=== PATIENT | female | born 1940 | race American Indian/Alaskan Native ===

== ENCOUNTER 2021-03-03 08:55 | Emergency (ER) | payer MEDICARE ==
--- NOTE | 2021-03-03 09:04 | Emergency Department Report ---
ED CPR HPI - General Chief Complaint: Cardiac Arrest/CPR Stated Complaint: CARDIAC ARREST Time Seen by Provider: 03/03/21 08:59 Source: EMS - History of Present Illness Initial Comments: Patient is 80 years old female with history of stroke, congestive heart failure, diabetes, hypertension. Patient brought to the emergency room via EMS from home in a full cardiac arrest CPR in progress. EMS stated that initial call came at 8:16 AM. ACLS started at 8:20AM. Patient immediately intubated by EMS. Patient received epinephrine, bicarb, dextrose 50 and calcium gluconate by EMS. Upon arrival to the ER ACLS protocol continued. ET tube confirmed by good breath sound on both side with symmetrical rise of the chest. EMS reported that patient last time was seen normal by her family around 1AM. Patient remained in asystole. Patient pronounced at 8:58AM. For further information please refer to code sheet. No family available at this moment. MD Complaint: found unresponsive, unknown -: unknown Place: home Bystander CPR Performed: No AED Applied by Bystander/Gas Derrick Operator: No Initial Findings in the Field: no pulse, systole ROSC in the Field: No Associated Injuries: No Treatments Prior to Arrival: intubation, chest compressions, epinephrine mgs #, sodium bicarbonate, glucose - Related Data Home Medications Medication Instructions Recorded Confirmed Last Taken Brimonidine/Timolol 0.2-0.5% 1 drops OP BID 11/13/15 11/13/15 11/12/15 08:00 [Combigan 0.2-0.5%] Carboxymethyl/Gly/Poly80/Pf 1 drop OP BID PRN 11/13/15 11/13/15 11/12/15 08:00 [Refresh Optive Advanced Drops] prednisoLONE ACETATE 1% [Pred 1 drops OP BID 11/13/15 11/13/15 11/12/15 08:00 Forte 1%] Previous Rx's Medication Instructions Recorded Last Taken Type Aspirin 325 mg PO QDAY #30 tablet 11/12/15 11/12/15 08:00 Rx 325 mg Fluticasone [Flonase] 1 spray NS QDAY #1 bottle 11/12/15 Unknown Rx Acetaminophen [Acetaminophen TAB] 650 mg PO Q4H PRN #1 tablet 12/02/15 Unknown Rx Enoxaparin 40 mg SUB-Q QDAY syringe 12/02/15 Unknown Rx Escitalopram [Lexapro] 10 mg PO DAILY tablet 12/02/15 Unknown Rx Gabapentin 100 mg PO Q8HR capsule 12/02/15 Unknown Rx Losartan [Cozaar] 50 mg PO QDAY tablet 12/02/15 Unknown Rx bisacodyL [Dulcolax suppos] 10 mg [place] QDAY PRN #1 supp.rect 12/02/15 Unknown Rx Allergies Allergy/AdvReac Type Severity Reaction Status Date / Time iodine Allergy Unknown Verified 11/09/15 00:53 atorvastatin calcium AdvReac Intermediate Dizziness Verified 11/12/15 21:43 [From Lipitor] rosuvastatin calcium AdvReac Intermediate Unknown Verified 11/12/15 21:43 [From Crestor] ED Review of Systems ROS: Stated complaint: CARDIAC ARREST Other details as noted in HPI Comment: Unobtainable due to pts medical conditions ED Past Medical Hx - Past Medical History Hx Hypertension: Yes Hx Congestive Heart Failure: Yes (Mild CHF per family) Hx Diabetes: Yes (Prediabetic per family no meds) Hx Psychiatric Treatment: Yes (anxiety, depression) Additional medical history: Heart murmur, Irregular heartbeat, lumbar stenosis, sleep apnea - Surgical History Additional Surgical History: Valve replacement - Social History Smoking Status: Never Smoker - Medications Home Medications: Home Medications Medication Instructions Recorded Confirmed Last Taken Type Aspirin 325 mg PO QDAY #30 tablet 11/12/15 11/21/15 11/12/15 08:00 Rx 325 mg Fluticasone [Flonase] 1 spray NS QDAY #1 bottle 11/12/15 11/21/15 Unknown Rx Brimonidine/Timolol 0.2-0.5% 1 drops OP BID 11/13/15 11/13/15 11/12/15 08:00 History [Combigan 0.2-0.5%] Carboxymethyl/Gly/Poly80/Pf 1 drop OP BID PRN 11/13/15 11/13/15 11/12/15 08:00 History [Refresh Optive Advanced Drops] prednisoLONE ACETATE 1% [Pred 1 drops OP BID 11/13/15 11/13/15 11/12/15 08:00 History Forte 1%] Acetaminophen [Acetaminophen TAB] 650 mg PO Q4H PRN #1 tablet 12/02/15 Unknown Rx Enoxaparin 40 mg SUB-Q QDAY syringe 12/02/15 Unknown Rx Escitalopram [Lexapro] 10 mg PO DAILY tablet 12/02/15 Unknown Rx Gabapentin 100 mg PO Q8HR capsule 12/02/15 Unknown Rx Losartan [Cozaar] 50 mg PO QDAY tablet 12/02/15 Unknown Rx bisacodyL [Dulcolax suppos] 10 mg [place] QDAY PRN #1 supp.rect 12/02/15 Unknown Rx ED Physical Exam - General General appearance: other (CPR in progress) - Head Head exam: Present: atraumatic (.), normocephalic, normal inspection - Eye Pupils: Present: other (4 mm, fixed and dilated) - Respiratory Respiratory exam: Present: other (No spontaneous breathing.) - Cardiovascular Cardiovascular Exam: Present: other (No spontaneous heart tone.) - GI/Abdominal GI/Abdominal exam: Present: soft. Absent: distended - Neurological Exam Neurological exam: Present: other (CPR in progress.) ED Course - Reevaluation(s) Reevaluation #1: 03/03/21 10:01 Patient family arrived to the emergency room. Patient daughter stated that she was having difficulty breathing around 1:00 this morning. She stated that she sit her up and then her symptoms get better and then she went to sleep. She stated that she woke up this morning and found her unresponsive. Patient family informed about patient . Critical Care Time: Yes Critical care time in (mins) excluding proc time.: 30 Critical care attestation.: If time is entered above; I have spent that time in minutes in the direct care of this critically ill patient, excluding procedure time. ED Disposition Clinical Impression: Cardiopulmonary arrest Disposition: 20 Is pt being admited?: No Condition: Stable
[2021-03-03] MEDS ORDERED: CALCIUM CHLORIDE 1,000 MG/10 ML SYRINGE IV ONE (17:20)
[2021-03-03] MEDS ORDERED: EPINEPHrine 1 MG/10 ML SYRINGE ONE (17:20)
[2021-03-03] MEDS ORDERED: AMIODARONE 150 MG/3 ML INJ IV ONE (17:20)
[2021-03-03] MEDS ORDERED: SODIUM BICARB 8.4% 50 MEQ/50 ML SYRINGE IV ONE (17:20)
== END 2021-03-03 13:21 ==
LOC: ED 08:55
DX: I46.9 Cardiac arrest, cause unspecified (principal)
CPT/HCPCS: 92950; 99285; J0171; J0282